=== PATIENT | female | born 1990 | race African-American/Black ===

== ENCOUNTER 2020-07-03 10:32 | Emergency (ER) | payer MEDICAID ==
[~2020-07-03] VITALS: Ht 160 cm; Wt 59.1 kg
[2020-07-03 10:38] VITALS: TEMP 98.2
[2020-07-03 11:13] LABS: BASO % 0.3 % (0.0-2.0); EOS # 0.1 (0.0-0.7); EOS % 0.9 % (0-4.0); GRAN # 3.6 (1.4-6.5); HEMOGLOBIN 13.3 g/dl (12.5-16.0); LYMPH # 2.7 (1.2-3.4); LYMPH % 39.2 % (20.0-51.0); MEAN CELL VOLUME 92 fl (80.0-100.0); MEAN CORPUSCULAR HEMOGLOBIN 31 pg (27.0-31.0); MEAN CORPUSCULAR HGB CONC 33 g/dl (33.0-37.0); MEAN PLATELET VOLUME 9.7 fl (7.4-10.4); MONO # 0.5 (0.1-0.6); MONO % 7.3 % (1.7-9.3); PLATELET COUNT 274 K/mm3 (130-400); RED BLOOD COUNT 4.34 M/mm3 (4.10-5.30); REDCELL DISTRIBUTION WIDTH-CV 13.2 % (11.5-14.5)
[2020-07-03 11:21] LABS: INR 1.2 (0.8-3.0); PROTHROMBIN TIME 13.9 SECONDS (9.7-12.8)
[2020-07-03 11:24] LABS: ALANINE AMINOTRANSFERASE 13 U/L (4-34); ALBUMIN 4.8 gm/dL (3.5-5.0); ALKALINE PHOSPHATASE 68 U/L (50-136); ANION GAP 10 mmol/L (7-16); AST,SGOT 24 U/L (15-37); BILIRUBIN,TOTAL 2.7 mg/dL (0.0-1.0); BLOOD UREA NITROGEN 6 mg/dL (7-17); CALCIUM 9.4 mg/dL (8.4-10.2); CARBON DIOXIDE 25 mmol/L (22-30); CHLORIDE 101 mmol/L (98-107); CREATININE, serum 0.69 (0.52-1.25); GLUCOSE 95 mg/dL (74-106); LIPASE 63 U/L (23-300); POTASSIUM 3.5 mmol/L (3.4-5.0); SODIUM 135 mmol/L (137-145); TOTAL PROTEIN 8.7 gm/dL (6.4-8.2)
[2020-07-03 11:38] LABS: TROPONIN-I < 0.012 ng/mL (0.000-0.035)
[2020-07-03 12:15] VITALS: BP 102/79; PULSE 103
== END 2020-07-03 12:15 | disposition home or self-care (01) ==
LOC: COL.ER 10:32
PROVIDERS: Emergency Medicine
DX: F41.9 Anxiety disorder, unspecified (principal); R42 Dizziness and giddiness
CPT/HCPCS: J2060; J7030